=== PATIENT | female | born 1990 | race Caucasian/White ===

== ENCOUNTER 2016-12-09 18:44 | Emergency (ER) | payer BC, OTHER ==
[~2016-12-09] VITALS: Ht 167.6 cm; Wt 78.1 kg
[~2016-12-09 18:44] MED LIST: ACET-1256 PO; BCPILLS PO; FRCT/ PO; LABE100T23 PO; PROM25TA9 PO; RIZA5TAB10 PO
[2016-12-09 18:51] VITALS: TEMP 36.9; Ht 167.6 cm; Wt 78.1 kg
[2016-12-09] MEDS ORDERED: TRAMADOL HCL 50 MG TAB PO STA (20:59)
[2016-12-09] MEDS ORDERED: SODIUM CHLORIDE 0.9% 1000ML 2,000 ML IV ONE (21:00)
--- NOTE | 2016-12-09 21:09 | EMERGENCY ROOM VISIT NOTE ---
History Report prepared by Prashant: Stephan Gamboa Under the Supervision of: Dr. Casper Bahena M.D. First contact with patient: 20:53 Chief Complaint: GI ASSESSMENT Stated Complaint: POSSIBLE DIVERTICULITIS FLARE UP Nursing Triage Summary: Pt c/o LLQ pain that radiates around to back hx diverticulitis sx since tuesday History of Present Illness The patient is a 26 year old female who presents to the Emergency Room with complaints of constant lower left quadrant abdominal pain beginning two days prior to arrival. She currently rates her discomfort as a 4/10 in severity. The patient associates lower left abdominal pain that radiates to her left flank, nausea, chills, diarrhea, and decreased appetite with today's symptoms. She states her symptoms worsen with eating. The patient notes her symptoms are similar to an episode of diverticulitis that she had one year ago. She denies ever seeing a psych specialist. The patient notes she has regular periods, with her last known menstrual period being three weeks ago. She also complains of persistent hypertension beginning several days prior to arrival. The patient denies leg pain. 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 Review of Systems All systems have been listed, reviewed, and are negative other than those previously mentioned. Please see Additional Medical History Sheet. Past Medical & Surgical Medical Problems: (1) Asthma (2) Bronchitis (3) Knee arthropathy (4) Migraine (5) Pneumonia Surgical Problems: (1) H/O thumb surgery (2) S/P knee surgery (3) S/P shoulder surgery (4) S/P wisdom tooth extraction Family History Cancer Diabetes mellitus Heart disease Hypertension Lung disease Social History Smoking Status: Never Smoker Marital Status: in relationship Housing Status: lives with significant other Occupation Status: employed Current/Historical Medications Scheduled Acetamin/Butalbital/Caffeine (Fioricet), 1 TAB PO prn ud Control Pills ( Control Pills), 1 TAB PO DAILY Labetalol Hcl (Labetalol Hcl), 1 TAB PO BID Ondasetron Odt (Zofran Odt), 4 MG SL Q6H Rizatriptan Benzoate (Maxalt), 1 TAB PO PRN UD Scheduled PRN Promethazine Hcl (Phenergan), 25 MG PO Q6H PRN for Nausea Tramadol (Ultram), 50 MG PO Q4-6h PRN for Pain Allergies Coded Allergies: Alcohol (Verified Allergy, Mild, HIVES, 12/09/16) Uncoded Allergies: CONDOM (Allergy, Intermediate, SWELLING/PAIN, 04/15/16) Physical Exam Vital Signs Date Time Temp Pulse Resp B/P Pulse Ox O2 Delivery O2 Flow Rate FiO2 12/09/16 23:28 118 20 152/100 99 Room Air 12/09/16 21:33 20 166/96 12/09/16 18:51 36.9 96 18 168/107 99 Room Air Physical Exam GENERAL: Patient awake, alert, oriented x 3. Patient follows commands. Patient does not appear toxic. Patient is adequately hydrated and well- nourished. SKIN: No erythema, pallor, cyanosis or rash HEENT: Normal head, pupils equal, reactive to light and accommodation. LUNGS: Clear to auscultation. No wheezes, no rales, no rhonchi. HEART: No murmurs. No gallops. No rubs ABDOMEN: Tenderness in the left lower quadrant into the left CVA area. EXTREMITIES: No signs of trauma. No pedal or pretibial edema. No calf or thigh tenderness. NEUROLOGIC: Cranial nerves II-XII within normal limits. No gross motor sensory function deficits. Medical Decision & Procedures ER Provider Diagnostic Interpretation: CT ABDOMEN & PELVIS Mild wall thickening of the rectosigmoid region, compatible with a nonspecific colitis. Question 2.4 cm complex/hemorrhagic left ovarian cyst. Consider followup with ultrasound in 4-6 weeks to ensure resolution. Remainder of examination shows no definite evidence for an acute inflammatory process. Radiologist: Odell Box M.D. Study ready at 23: 25 and initial results transmitted at 23:32 Laboratory Results 12/09/16 21:30 Red Blood Count 5.22, Mean Corpuscular Volume 83.5, Mean Corpuscular Hemoglobin 28.5, Mean Corpuscular Hemoglobin Concent 34.2, Mean Platelet Volume 12.2, Neutrophils (%) (Auto) 61.7, Lymphocytes (%) (Auto) 28.0, Monocytes (%) (Auto) 8.7, Eosinophils (%) (Auto) 0.9, Basophils (%) (Auto) 0.4, Neutrophils # (Auto) 6.48, Lymphocytes # (Auto) 2.93, Monocytes # (Auto) 0.91, Eosinophils # (Auto) 0.09, Basophils # (Auto) 0.04 12/09/16 21:30 Test 12/09/16 21:30 White Blood Count 10.48 K/uL (4.8-10.8) Red Blood Count 5.22 M/uL (4.2-5.4) Hemoglobin 14.9 g/dL (12.0-16.0) Hematocrit 43.6 % (37-47) Mean Corpuscular Volume 83.5 fL (80-100) Mean Corpuscular Hemoglobin 28.5 pg (25-34) Mean Corpuscular Hemoglobin Concent 34.2 g/dl (32-36) Platelet Count 203 K/uL (130-400) Mean Platelet Volume 12.2 fL (7.4-10.4) Neutrophils (%) (Auto) 61.7 % Lymphocytes (%) (Auto) 28.0 % Monocytes (%) (Auto) 8.7 % Eosinophils (%) (Auto) 0.9 % Basophils (%) (Auto) 0.4 % Neutrophils # (Auto) 6.48 K/uL (1.4-6.5) Lymphocytes # (Auto) 2.93 K/uL (1.2-3.4) Monocytes # (Auto) 0.91 K/uL (0.11-0.59) Eosinophils # (Auto) 0.09 K/uL (0-0.5) Basophils # (Auto) 0.04 K/uL (0-0.2) RDW Standard Deviation 41.5 fL (36.4-46.3) RDW Coefficient of Variation 13.7 % (11.5-14.5) Immature Granulocyte % (Auto) 0.3 % Immature Granulocyte # (Auto) 0.03 K/uL (0.00-0.02) Urine Color YELLOW Urine Appearance CLEAR (CLEAR) Urine pH 5.5 (4.5-7.5) Urine Specific [place] 1.008 (1.000-1.030) Urine Protein NEG (NEG) Urine Glucose (UA) NEG (NEG) Urine Ketones NEG (NEG) Urine Occult Blood TRACE (NEG) Urine Nitrite NEG (NEG) Urine Bilirubin NEG (NEG) Urine Urobilinogen NEG (NEG) Urine Leukocyte Esterase SMALL (NEG) Urine WBC (Auto) 10-30 /hpf (0-5) Urine RBC (Auto) 0-4 /hpf (0-4) Urine Hyaline Casts (Auto) 0 /lpf (0-5) Urine Epithelial Cells (Auto) >30 /lpf (0-5) Urine Bacteria (Auto) NEG (NEG) Urine Test NEG (NEG) Anion Gap 10.0 mmol/L (3-11) Est Creatinine Clear Calc Drug Dose 110.2 ml/min Estimated GFR () 114.4 Estimated GFR (Non- 98.7 BUN/Creatinine Ratio 10.4 (10-20) Calcium Level 8.6 mg/dl (8.5-10.1) Total Bilirubin 0.2 mg/dl (0.2-1) Aspartate Amino Transf (AST/SGOT) 22 U/L (15-37) Alanine Aminotransferase (ALT/SGPT) 22 U/L (12-78) Alkaline Phosphatase 83 U/L (45-117) Total Protein 7.8 gm/dl (6.4-8.2) Albumin 3.8 gm/dl (3.4-5.0) Globulin 4.0 gm/dl (2.5-4.0) Albumin/Globulin Ratio 1.0 (0.9-2) Chemistry Specimen Hemolysis Laboratory results as stated above per my review. Medications Administered Medications (Trade) Dose Ordered Sig/[place] Route Start Time Stop Time Status Last Admin Dose Admin Tramadol HCl 50 mg 50 mg NOW STAT PO 12/09/16 20:59 12/09/16 21:05 DC 12/09/16 21:21 50 MG Sodium Chloride (Nss 1000ml) 2,000 ml @ 1,000 mls/hr Q2H ONCE IV 12/09/16 21:00 12/09/16 22:59 DC 12/09/16 21:21 1,000 MLS/HR ED Course 2054: Past medical records reviewed. The patient was evaluated in room C12B. A complete history and physical examination was performed. 2058: Ordered Ultram Tab 50 mg PO. 2099: Ordered Sodium Chloride 2,000 ml @ 1,000 mls/hr IV. 2344: Ordered Ondansetron HCl 1 homepack PO, Tramadol HCl 1 homepack PO. 2347: Upon reevaluation, the patient appeared to have improvement of her symptoms. I discussed today's findings with her. She verbalized agreement of the treatment plan. The patient was discharged home. Medical Decision Nurses notes reviewed. Medical history sheet reviewed. Differential diagnosis includes but is not limited to: diverticulitis, ovarian cyst, kidney stone. Multiple labs, urinalysis, imaging were obtained. Please see above. CT reveals some mild colitis. She also has an ovarian cyst. Patient did well with IV fluids and Ultram. She was also given Zofran. The patient will continue his medications at home. I do not believe she requires antibiotics at this time. The patient will require follow-up by her family practitioner. Urinalysis may be contaminated and therefore no antibiotics until culture returns. [place] Drug Monitoring Program Search Results: patient reviewed within database, no issues identified Impression Primary Impression: Colitis Additional Impressions: Hemorrhagic ovarian cyst Hypertension Scribe Attestation The scribe's documentation has been prepared under my direction and personally reviewed by me in its entirety. I confirm that the note above accurately reflects all work, treatment, procedures, and medical decision making performed by me. Departure Information Dispostion Home / Self-Care Prescriptions Tramadol (Ultram) 50 Mg Tab 50 MG PO Q4-6h Y for Pain, #20 TAB Prov: Casper Bahena M.D. 12/09/16 Ondasetron Odt (ZOFRAN ODT) 4 Mg Tab 4 MG SL Q6H for Nausea, #6 TAB Prov: Casper Bahena M.D. 12/09/16 Referrals No Doctor, Assigned (PCP) Forms HOME CARE DOCUMENTATION FORM, IMPORTANT VISIT INFORMATION, Work Instructions Patient Instructions My [facility] Additional Instructions 1 Zofran every 4 hours as needed for nausea. 1 tramadol every 4-6 hours as needed for pain. Drink at least 3-4 quarts of liquid over the next 24 hours. Off work for the next 3 days. Follow-up with your family practitioner within the next 3-4 days regarding your abdominal pain and hypertension. Problem Qualifiers
[2016-12-09] MEDS ORDERED: OPTIRAY 320 IV PRN (21:15)
[2016-12-09 22:00] LABS: BASO % 0.4 %; BASO ABS # 0.04 K/uL (0-0.2); COMPLETE YES; EOS % 0.9 %; HEMATOCRIT 43.6 % (37-47); IG% 0.3 %; LYMPH ABS # 2.93 K/uL (1.2-3.4); MEAN CELL VOLUME 83.5 fL (80-100); MEAN CORPUSCULAR HEMOGLOBIN 28.5 pg (25-34); MEAN CORPUSCULAR HGB CONC 34.2 g/dl (32-36); MEAN PLATELET VOLUME 12.2 fL (7.4-10.4); MONO % 8.7 %; NEUT % 61.7 %; PLATELET COUNT 203 K/uL (130-400); RED BLOOD COUNT 5.22 M/uL (4.2-5.4); WHITE BLOOD COUNT 10.48 K/uL (4.8-10.8)
[2016-12-09 22:12] LABS: URINE APPEARANCE CLEAR (CLEAR); URINE BILIRUBIN NEG (NEG); URINE COLOR YELLOW; URINE EPITHELIAL CELL AUTO >30 /lpf (0-5); URINE NITRITE NEG (NEG); URINE PH 5.5 (4.5-7.5); URINE SPECIFIC GRAVITY 1.008 (1.000-1.030); UROBILINOGEN NEG (NEG); ZZUR CULT IF INDIC CLEAN CATCH YES
[2016-12-09 22:13] LABS: MANUAL MICROSCOPIC REQUIRED? NO; REVIEW REQ? NO
[2016-12-09 22:18] LABS: BUN/CREATININE RATIO 10.4 (10-20); CALCIUM 8.6 mg/dl (8.5-10.1); CREATININE 0.83 mg/dl (0.60-1.20); POTASSIUM 3.4 mmol/L (3.5-5.1)
[2016-12-09] MEDS ORDERED: TRAMADOL HCL 50 MG HOME PACK PO ONE (23:45)
[2016-12-09] MEDS ORDERED: ONDANSETRON HOME PACK 4MG OD TAB PO ONE (23:45)
[2016-12-09] MEDS ORDERED: TRAM-10 PO (23:49)
[2016-12-09] MEDS ORDERED: ONDA4TAB10 SL (23:49)
[2016-12-10 00:09] VITALS: BP 159/106; PULSE 96; O2SAT 100
--- NOTE | 2016-12-10 07:41 | DIAGNOSTIC IMAGING REPORT ---
ABDOMEN AND PELVIS CT WITH IV AND ORAL CONTRAST CT DOSE: 442.58 mGy.cm HISTORY: Left lower quadrant abdominal pain. TECHNIQUE: Multiaxial CT images of the abdomen and pelvis were performed following the use of intravenous and oral contrast. COMPARISON STUDY: None. FINDINGS: The lung bases are clear. No fractures within the visualized osseous structures. The liver, gallbladder, pancreas, spleen, adrenal glands, and kidneys are unremarkable. No retroperitoneal lymphadenopathy. No evidence for bowel obstruction. The bladder is unremarkable. A 2.4 cm cyst within the left ovary. This favors a corpus luteum. Normal uterus and right ovary. Normal appendix. Mild thickening of the descending colon, sigmoid colon, and rectum. IMPRESSION: 1. Mild thickening of the descending colon, sigmoid colon, and rectum. This is consistent with a nonspecific colitis and is likely due to inflammatory or infectious process. 2. Normal appendix. Electronically signed by: Benoit Smith M.D. 12/10/2016 7:39 AM Dictated Date/Time: 12/10/2016 7:36 AM
== END 2016-12-10 00:13 | disposition home or self-care (01) ==
LOC: C.EDB 18:46 → C.EDC 12-10 00:13
DX: K52.9 Noninfective gastroenteritis and colitis, unspecified (principal); N83.209 Unspecified ovarian cyst, unspecified side; I10 Essential (primary) hypertension; J45.909 Unspecified asthma, uncomplicated; Z87.01 Personal history of pneumonia (recurrent); Z83.3 Family history of diabetes mellitus; Z82.49 Family history of ischemic heart disease and other diseases of the circulatory system; Z79.3 Long term (current) use of hormonal contraceptives; Z79.899 Other long term (current) drug therapy

== ENCOUNTER → 2017-02-09 | Outpatient (CLI) | payer BC ==
[~2017-02-09] MED LIST changes: -ACET-1256 PO; +ONDA4TAB10 SL; +TRAM-10 PO
--- NOTE | 2017-02-09 16:01 | DIAGNOSTIC IMAGING REPORT ---
ULTRASOUND OF THE THYROID GLAND CLINICAL HISTORY: Goiter. COMPARISON STUDY: No priors. TECHNIQUE: Real-time, grayscale, and color flow sonography of the thyroid gland is performed utilizing a high-frequency linear transducer. Images are reviewed in the transverse and longitudinal planes. FINDINGS: Right lobe: The right lobe of the thyroid gland is normal in size and slightly heterogeneous in echotexture, measuring 4.6 x 1.8 x 1.5 cm. A cyst in the lower pole measures up to 6 mm. Additional smaller cystic foci are identified. Left lobe: The left lobe of the thyroid gland is normal in size and slightly heterogeneous in echotexture, measuring 4.9 x 1.7 x 1.8 cm. A complex predominantly cystic nodule in the lower pole measures 1.2 x 1.0 x 0.9 cm. Additional smaller cystic foci are noted. Isthmus: The thyroid isthmus is normal in appearance and measures 0.3 cm in AP diameter. IMPRESSION: 1. The thyroid gland is normal in size and heterogeneous in echotexture. 2. Predominantly cystic thyroid nodules are discussed above. No concerning thyroid lesion is identified. Precautionary 12 month follow-up is recommended. Electronically signed by: Hank Echavarria M.D. 02/09/2017 3:59 PM Dictated Date/Time: 02/09/2017 3:57 PM
== END | disposition home or self-care (01) ==
LOC: C.ULTR 15:29
PROVIDERS: ATTEND Internal Medicine Endocrinology, Diabetes & Metabolism
DX: E04.9 Nontoxic goiter, unspecified (principal)

== ENCOUNTER → 2017-05-11 | Outpatient (CLI) | payer BC ==
[2017-05-11 10:42] LABS: THYROID STIMULATING HORMONE 4.09 uIu/ml (0.300-4.500)
[2017-05-13 12:44] LABS: NORMETANEPHRINE PLASMA 115 pg/mL (<=148); TOTAL METANEPHRINE PLASMA 142 pg/mL (<=205)
== END | disposition home or self-care (01) ==
LOC: C.LAB 08:41
PROVIDERS: ATTEND Internal Medicine Endocrinology, Diabetes & Metabolism
DX: E03.9 Hypothyroidism, unspecified (principal)